=== PATIENT | male | born 1965 | race Caucasian/White ===

== ENCOUNTER 2019-08-20 09:32 | Day surgery (SDC) | payer OTHER, SELFPAY ==
--- NOTE | 2019-08-20 | PATH_ITS ---
[facility] Accession Number: [id number] . 01 Material submitted: . PART A: colon - COLON POLYP AT 65 CM PART B: colon - COLON POLYP AT 30 CM PART C: rectum - RECTAL POLYP AT 15 CM . 02 Diagnosis: A. Colon, Polyp At 65 CM, Biopsy: Very scant fragment of colonic tissue with no diagnostic abnormality. . B. Colon, Polyp At 30 CM, Biopsy: Tubular adenoma. . C. Rectum, Polyp At 15 CM, Biopsy: Hyperplastic polyp. I 08/23/2019 1524 Local . 02 Electronically signed: . Latonya Singleton MD, Pathologist NPI- [id number] . 01 Gross description: . Part A: COLON POLYP AT 65 CM: Received in formalin is 1 fragment(s) of mena, soft tissue measuring 0.3 x 0.2 x 0.1 cm submitted entirely in 1 cassette(s) Part B: COLON POLYP AT 30 CM: Received in formalin is 1 fragment(s) of mena, soft tissue measuring 0.4 x 0.2 x 0.2 cm submitted entirely in 1 cassette(s) Part C: RECTAL POLYP AT 15 CM: Received in formalin is 1 fragment(s) of mena, soft tissue measuring 0.2 x 0.1 x 0.1 cm submitted entirely in 1 cassette(s) /QBJ 08/20/2019 2358 Local . 02 Pathologist provided ICD-10: D12.6 . 02 CPT . 483703, [id number], [id number] Performed at: [address], [place], [place] [id number] MD Michele Rodriguez MD Phone: [phone] Performed at: [facility] [address] [place] [id number] MD Latonya Singleton MD Phone: [phone]
--- NOTE | 2019-08-20 09:37 | PM.HP.1 ---
History of Present Illness History of Present Illness Date Patient Seen: 08/20/19 Time Patient Seen: 09:37 Chief complaint: [id number] Narrative: This is a 53-year-old man who had his 1st screening colonoscopy 5 years ago, was told that he was found to have polyps diverticulosis, and needed repeat colonoscopy in 5 years. In the interim he denies any hematochezia, melena, unexplained abdominal pain, unexplained weight loss. Denies any significant family history of colon cancer or colon polyps. He is otherwise healthy, and denies any significant medical problems. Past medical history: Allergic rhinitis, rosacea, colon polyps, hyperlipidemia Past surgical history: Denies Social: Nonsmoker, alcohol 1 to 2 times a week, lives with and children Family history: Denies family history of colorectal cancer or polyps. Medications: Lipitor Topical for skin-see chart Eye drops-see chart ROS: Thirteen system review is otherwise negative other than as mentioned below and in HPI. PE: GENERAL: Well groomed and cooperative. Appears stated age. Answers questions promptly and appropriately. Vital signs noted. HENT: Normocephalic, atraumatic. Hearing intact. Oral mucosa is pink and moist. EYES: Conjunctiva pink, sclera white, no periorbital swelling. CARDIOVASCULAR: Regular rate. No pedal edema. RESPIRATORY: Non-tachypneic, breathing comfortably on room air. GASTROINTESTINAL: Abdomen soft and non-distended GENITALURINARY: No flank tenderness. MUSCULOSKELETAL: Equal tone and mass bilaterally. SKIN: Warm, dry, soft, appropriate color for ethnicity. No other lesions, rashes, or wounds. NEURO: Alert and Oriented X 3. No gross sensory deficits, or cognitive issues. PSYCH: Appropriate affect and mood. Patient History Medical History Diverticulosis (Acute) Elevated cholesterol (Acute) Enlarged prostate (Acute) Environmental allergies (Acute) Urinary frequency (Acute) Meds Home Medications and Allergies Home Medications Medication Instructions Recorded Confirmed Type atorvastatin [Lipitor] 10 mg PO DAILY 08/20/19 08/20/19 History coQ10 (ubiquinol) 100 mg PO DAILY 08/20/19 08/20/19 History Allergies Allergy/AdvReac Type Severity Reaction Status Date / Time No Known Drug Allergies Allergy Verified 08/20/19 09:48 Assessment & Plan Assessment and plan (1) Personal history of colonic polyps: Current visit: Yes Status: Acute Assessment & Plan narrative: Risks and benefits of screening colonoscopy and possible polypectomy were discussed with the patient including risk of bleeding, perforation, need for additional procedures, risks of anesthesia. The patient desires to proceed with the colonoscopy procedure. Time Spent With Patient Time with patient: 15-24 minutes Quality VTE Deep Vein Thrombosis/Pulmonary Embolism Present on Admission: No
[2019-08-20 09:52] VITALS: BP 147/96; PULSE 65; RESP 16; TEMP 37.2; O2SAT 98
[2019-08-20 09:57] VITALS: BMI 25.3
[2019-08-20] MEDS: SODIUM CHLORIDE 0.9% 1,000 ML 200 ML IV (10:00)
[2019-08-20] MEDS: MIDAZOLAM 5 MG/5 ML VIAL IV (10:12)
[2019-08-20] MEDS: fentaNYL 250 MCG/5 ML INJ IV (10:13)
--- NOTE | 2019-08-20 10:13 | P.OP.ENDO_ITS ---
Operative Date/Time/Diagnoses Date of procedure: 08/20/19 Time of procedure: 10:13 Pre-op diagnosis: Personal history of colon polyps, diverticulosis Post-op diagnosis: other (Three polyps found and removed during this procedure, and low-grade diverticulosis in the sigmoid and descending colon) Procedure & Clinicians Study performed: Surveillance Colonoscopy with polypectomy x3 using cold forceps x2 and hot snare x1 Same procedure as scheduled: Yes Indications: Personal history of colon polyps Surgeon: Melody Tong Procedure Notes SCOAP/Timeout: Performed Procedure in detail: The patient was brought to the room and placed in left lateral decubitus position with all bony prominences padded. A time-out was performed and then the patient was given procedural sedation starting with 4 mg of Versed and 100 mcg of fentanyl. A total of 5 mg of Versed and 150 micro g of fentanyl were given for the entire procedure. Vitals were monitored throughout the procedure and remained stable. Once adequately sedated the procedure was begun. A rectal exam was performed revealing no abnormalities. The colonoscope was then introduced to the rectum and advanced to the cecum in the usual fashion. The cecum was identified by the appendiceal orifice, the mucosal tri- fold, and the ileocecal valve. The scope was then retracted while rotating side to side and examining each mucosal fold. Three polyps were found and completely removed. One was at 65 cm which was removed with cold forceps, 1 was at 30 cm which was removed with hot snare, and 1 was a 15 cm which was removed with cold forceps. At the conclusion of the procedure retroflexion was performed and small grade 1 internal hemorrhoids without stigmata of bleeding were seen. The scope was then withdrawn from the rectum the procedure was concluded. The greg oconnor tolerated the procedure well and was transferred to the PACU in stable condition. Scope withdrawal time: 18 Sedation minutes: 25 Findings: diverticulosis and polyp (Three polyps) Specimen(s): other (Three polyps) Complications: none Impression: Three small polyps completely removed, low-grade diverticulosis Post-procedure Recommendations: Colonscopy in 5 years and Other recommendation (Continue using daily fiber supplement such as Metamucil or Benefiber) Follow up: as needed Disposition: PACU
[2019-08-20 10:43] VITALS: BP 115/81; PULSE 62; RESP 13; TEMP 37; O2SAT 96
[2019-08-20 10:48] VITALS: BP 111/81; PULSE 60; RESP 12; O2SAT 95
[2019-08-20 10:53] VITALS: BP 111/76; PULSE 61; RESP 12; O2SAT 93
[2019-08-20 11:00] VITALS: BP 120/86; PULSE 65; RESP 17; TEMP 37; O2SAT 96
[2019-08-20 11:22] VITALS: BP 126/87; PULSE 62; RESP 12; TEMP 36.6; O2SAT 97
== END 2019-08-20 11:28 | disposition home or self-care (01) ==
PROVIDERS: PCP Family Medicine; Referring Provider Surgery; Visit Provider Surgery
PROC: 0DJD8ZZ Inspection of Lower Intestinal Tract, Via Natural or Artificial Opening Endoscopic (ICD-10-PCS; CPT 45378; principal; 2019-08-20 10:45)
DX: Z12.11 Encounter for screening for malignant neoplasm of colon (principal); Z86.010 Personal history of colon polyps; K57.30 Diverticulosis of large intestine without perforation or abscess without bleeding; K64.0 First degree hemorrhoids; D12.6 Benign neoplasm of colon, unspecified
CPT/HCPCS: 45385; 45380; 99152; 99153; J2250; J3010